=== PATIENT | male | born 1950 | race Caucasian/White ===

== ENCOUNTER 2018-01-02 06:18 | Day surgery (SDC) | payer OTHER ==
[2017-12-23 14:00] VITALS: BP 147/84
[2017-12-23 14:21] LABS: BASOPHILS % (AUTO) 0.7 % (0.0-5.0); EOSINOPHILS % (AUTO) 9.1 % (0.0-8.0); HEMATOCRIT 38.5 % (42-54); LYMPHOCYTES % (AUTO) 19.5 % (21.0-51.0); MEAN CORPUSCULAR HEMOGLOBIN 31.3 pg (27.0-33.0); MEAN CORPUSCULAR HGB CONC 34.2 g/dL (32.0-36.0); MEAN CORPUSCULAR VOLUME 91.6 fL (79-99); MONOCYTES % (AUTO) 8.3 % (3.0-13.0); NEUTROPHILS % (AUTO) 62.4 % (40.0-77.0); PLATELET COUNT (AUTO) 212 K/uL (130-400); RED CELL DISTRIBUTION WIDTH 13.5 % (11.0-15.5); WHITE BLOOD COUNT (AUTO) 7.7 K/uL (4.8-10.8)
[2017-12-23 14:26] LABS: APPEARANCE,URINE Clear (CLEAR); BILIRUBIN,URINE Negative (NEGATIVE); COLOR,URINE Yellow (YELLOW); GLUCOSE, URINE (UA) Negative (NEGATIVE); KETONES,URINE Trace mg/dL (NEGATIVE); LEUKOCYTE ESTERASE ,URINE Trace (NEGATIVE); NITRATE,URINE Negative (NEGATIVE); OCCULT BLOOD,URINE Negative (NEGATIVE); PH,URINE 6.5 (5.0-8.0); PROTEIN,URINE Negative (NEGATIVE)
[2017-12-23 14:30] LABS: POTASSIUM 4.2 mmol/L (3.5-5.1)
[2017-12-23 14:32] LABS: PARTIAL THROMBOPLASTIN TIME 30.1 SEC (26.3-35.5); PROTHROMBIN TIME 10.5 SEC (9.6-11.6)
[2017-12-23 14:49] LABS: BACTERIA,URINE Few /HPF (None Seen); RBC,URINE 0-1 /HPF (0-1)
[2017-12-23 14:50] LABS: MUCUS,URINE Few LPF (None Seen); SQUAMOUS EPITHELIAL CELL,UR Rare /HPF (0-2)
[2018-01-02] VITALS (15 sets, daily range): BP systolic 124–171; BP diastolic 70–93
[~2018-01-02] VITALS: Ht 167.6 cm; Wt 80.6 kg
[~2018-01-02 06:18] MED LIST: AEC81 PO; DICL500C PO; MAGN250T2 PO; ROSU20TA30 PO; SODIUM CHLORIDE 0.9% 500ML 500 ML IV SCH
[2018-01-02] MEDS ORDERED: SODIUM BICARB 50MEQ 50ML VIAL ONE (07:10)
[2018-01-02] MEDS ORDERED: LIDOCAINE HCL-MPF 2% 5ML VIAL ONE (07:10)
[2018-01-02] MEDS ORDERED: NITROGLYCERIN 5 MG/ML 10 ML VIAL IV ONE (07:11)
[2018-01-02] MEDS ORDERED: IOHEXOL-350 50ML VIAL IV ONE (07:11)
[2018-01-02] MEDS ORDERED: HEPARIN SODIUM 1000UNIT/ML 10ML VIAL ONE (07:11)
[2018-01-02] MEDS ORDERED: IOHEXOL 350 MG/ML 100ML INFUS..BTL IV ONE (07:11)
[2018-01-02] MEDS ORDERED: METO-408 PO (07:50)
[2018-01-02] MEDS ORDERED: SODIUM CHLORIDE 0.9% 1000ML 1,000 ML IV SCH (08:18)
[2018-01-02] MEDS ORDERED: ACETAMINOPHEN-CODEINE 300/30MG TAB PO PRN ×2 (08:30)
== END 2018-01-02 13:20 | disposition home or self-care (01) ==
LOC: DAH 06:18
PROVIDERS: ATTEND Internal Medicine Cardiovascular Disease
DX: I25.119 Atherosclerotic heart disease of native coronary artery with unspecified angina pectoris (principal); F10.10 Alcohol abuse, uncomplicated; Z79.899 Other long term (current) drug therapy; Z79.82 Long term (current) use of aspirin; Z86.19 Personal history of other infectious and parasitic diseases
CPT/HCPCS: 36415; 71045; 80048; 81001; 85025; 85610; 85730; 93005; 93458; A4606; C1760; C1894; J1644; J3490 ×3; Q9965; Q9967 ×2

== ENCOUNTER → 2018-03-07 | Outpatient (CLI) | payer OTHER ==
[~2018-03-07] MED LIST changes: +METO-408 PO; -SODIUM CHLORIDE 0.9% 500ML 500 ML IV SCH
== END | disposition home or self-care (01) ==
LOC: RAH 15:34
PROVIDERS: ATTEND Internal Medicine Cardiovascular Disease
DX: I51.7 Cardiomegaly (principal); M47.895 Other spondylosis, thoracolumbar region; Z72.89 Other problems related to lifestyle
CPT/HCPCS: 71046

== ENCOUNTER → 2018-05-29 | Outpatient (CLI) | payer OTHER | END | disposition home or self-care (01) | LOC: RAH 12:51 | PROVIDERS: ATTEND Internal Medicine Cardiovascular Disease | DX: J84.9 Interstitial pulmonary disease, unspecified (principal); T81.32XA Disruption of internal operation (surgical) wound, not elsewhere classified, initial encounter; M47.815 Spondylosis without myelopathy or radiculopathy, thoracolumbar region; I25.10 Atherosclerotic heart disease of native coronary artery without angina pectoris; Y83.8 Other surgical procedures as the cause of abnormal reaction of the patient, or of later complication, without mention of misadventure at the time of the procedure | CPT/HCPCS: 71250 ==

== ENCOUNTER 2019-01-13 08:54 | Emergency (ER) | payer OTHER ==
[~2019-01-13 08:54] MED LIST changes: -ROSU20TA30 PO; +ROSU20TA31 PO
[2019-01-13 09:16] LABS: BASOPHILS % (AUTO) 0.6 % (0.0-5.0); EOSINOPHILS % (AUTO) 7.2 % (0.0-8.0); HEMATOCRIT 43.6 % (42-54); LYMPHOCYTES % (AUTO) 17.8 % (21.0-51.0); MEAN CORPUSCULAR HEMOGLOBIN 31.8 pg (27.0-33.0); MEAN CORPUSCULAR HGB CONC 34.6 g/dL (32.0-36.0); MEAN CORPUSCULAR VOLUME 91.8 fL (79-99); MONOCYTES % (AUTO) 8.2 % (3.0-13.0); NEUTROPHILS % (AUTO) 66.2 % (40.0-77.0); PLATELET COUNT (AUTO) 207 K/uL (130-400); RED BLOOD CELL COUNT(AUTO) 4.75 MIL/uL (4.50-6.20); WHITE BLOOD COUNT (AUTO) 7.6 K/uL (4.8-10.8)
[2019-01-13] MEDS ORDERED: NITROGLYCERIN 1GM/1 INCH PACKET TD ONE (09:22)
[2019-01-13] MEDS ORDERED: ASPIRIN 325 MG TABLET ONE (09:22)
[2019-01-13 09:26] LABS: POTASSIUM 3.7 mmol/L (3.5-5.1)
[2019-01-13 09:28] LABS: APPEARANCE,URINE Clear (CLEAR); BILIRUBIN,URINE Negative (NEGATIVE); COLOR,URINE Yellow (YELLOW); GLUCOSE, URINE (UA) Negative (NEGATIVE); KETONES,URINE Negative (NEGATIVE); LEUKOCYTE ESTERASE ,URINE Trace (NEGATIVE); NITRATE,URINE Negative (NEGATIVE); OCCULT BLOOD,URINE Negative (NEGATIVE); PROTEIN,URINE Negative (NEGATIVE)
[2019-01-13 09:29] LABS: INR 0.95 (0.85-1.15); PARTIAL THROMBOPLASTIN TIME 27.1 SEC (26.3-35.5)
[2019-01-13 09:34] LABS: ALBUMIN 3.7 g/dL (3.5-5.0); BILIRUBIN,TOTAL 0.8 mg/dL (0.2-1.0); TOTAL PROTEIN, SERUM 7.6 g/dL (6.0-8.3)
[2019-01-13 09:39] LABS: BACTERIA,URINE Few /HPF (None Seen); SQUAMOUS EPITHELIAL CELL,UR 0-2 /HPF (0-2)
[2019-01-13 09:40] LABS: RBC,URINE 0-1 /HPF (0-1)
[2019-01-13 09:43] LABS: B-TYPE NATRIURETIC PEPTIDE 37 pg/mL (0-100)
== END 2019-01-13 13:44 | disposition left against medical advice (07) ==
LOC: EDH 08:54
DX: R07.89 Other chest pain (principal); I10 Essential (primary) hypertension; Z87.891 Personal history of nicotine dependence
CPT/HCPCS: 36415; 71045; 80053; 81001; 82550; 83880; 84484; 85025; 85610; 85730; 93005

== ENCOUNTER → 2020-09-15 | Outpatient (CLI) | payer MEDICARE | END | disposition home or self-care (01) | LOC: SHCH 10:33 | PROVIDERS: ATTEND Internal Medicine Cardiovascular Disease | DX: R01.1 Cardiac murmur, unspecified (principal) | CPT/HCPCS: 93306; 93356 ==

== ENCOUNTER 2021-02-26 23:20 | Inpatient (IN) | payer MEDICARE ==
[~2021-02-26] VITALS: Ht 167.6 cm; Wt 71.7 kg
[~2021-02-26 23:20] MED LIST changes: -MAGN250T2 PO; +MAGN250T35 PO
[2021-02-27] VITALS (38 sets, daily range): BP systolic 110–188; BP diastolic 66–119
[2021-02-27] MEDS ORDERED: METO-408 PO (00:58)
[2021-02-27] MEDS ORDERED: TICAGRELOR 90 MG TABLET PO SCH (01:00)
[2021-02-27] MEDS ORDERED: AEC81 PO (01:00)
[2021-02-27] MEDS ORDERED: [UNRECOGNIZED DRUG - CODE] PO (01:00)
[2021-02-27] MEDS ORDERED: PHARMACY COMMUNICATION MISC SCH (01:00)
[2021-02-27] MEDS ORDERED: ATOR40TA71 PO (01:00)
[2021-02-27] MEDS: MORPHINE 2 MG SYG IVP PRN (01:13)
[2021-02-27 03:29] LABS: MEAN CORPUSCULAR HEMOGLOBIN 30.7 pg (27.0-33.0); MEAN CORPUSCULAR HGB CONC 34.4 g/dL (32.0-36.0); MEAN CORPUSCULAR VOLUME 89.2 fL (79-99); RED BLOOD CELL COUNT(AUTO) 4.37 MIL/uL (4.50-6.20); RED CELL DISTRIBUTION WIDTH 13.2 % (11.0-15.5); WHITE BLOOD COUNT (AUTO) 11.2 K/uL (4.8-10.8)
[2021-02-27 03:54] LABS: ALBUMIN 3.3 g/dL (3.5-5.0); BILIRUBIN,TOTAL 0.4 mg/dL (0.2-1.0); CREATININE 0.8 mg/dL (0.5-1.5); MAGNESIUM 1.7 mg/dL (1.80-2.40); POTASSIUM 3.3 mmol/L (3.5-5.1); TOTAL PROTEIN, SERUM 6.9 g/dL (6.0-8.3)
[2021-02-27] MEDS ORDERED: ONDANSETRON 4MG INJ ONE (04:28)
[2021-02-27] MEDS ORDERED: POTASSIUM CHLORIDE 10MEQ/100ML 100 ML IV PRN (04:30)
[2021-02-27] MEDS ORDERED: HYDRALAZINE 20MG/ML VIAL IV PRN (04:30)
[2021-02-27] MEDS ORDERED: KCL 20 MEQ ERTAB PO PRN (04:30)
[2021-02-27] MEDS ORDERED: NITROGLYCERIN 0.4 MG SL TAB SL PRN (04:30)
[2021-02-27] MEDS ORDERED: ONDANSETRON 4MG INJ IVP PRN (04:30)
[2021-02-27] MEDS ORDERED: LACTULOSE 20 GM/30 ML UDCUP PO PRN ×2 (04:30→14:30)
[2021-02-27] MEDS ORDERED: LIDOCAINE HCL-MPF 1% 2ML VIAL IV PRN (04:30)
[2021-02-27] MEDS ORDERED: ACETAMINOPHEN 325 MG TAB PO PRN ×2 (04:30)
[2021-02-27] MEDS: MAGNESIUM 2GM PREMIX 50ML 50 ML IV SCH (04:54)
[2021-02-27] MEDS: 0.9%NACL 1000ML 1,000 ML IV SCH (04:55)
[2021-02-27] MEDS: POTASSIUM CHLORIDE 10MEQ/100ML 10 MEQ/100 ML ML IV SCH ×2 (04:55→06:30)
[2021-02-27] MEDS ORDERED: LORAZEPAM 2 MG/ML 1 ML VIAL IVP PRN (05:00)
[2021-02-27] MEDS ORDERED: PHARMACY COMMUNICATION MISC PRN (05:00)
[2021-02-27 05:06] LABS: THYROID STIMULATING HORMONE 2.87 uIU/mL (0.36-3.74)
[2021-02-27 05:38] LABS: PROTHROMBIN TIME 10.9 SEC (9.6-11.6)
[2021-02-27 05:39] LABS: PARTIAL THROMBOPLASTIN TIME 30.3 SEC (26.3-35.5)
[2021-02-27] MEDS: INSULIN HUMULIN R 100 UNIT/ML 3ML SQ SCH ×4 (07:30→21:00)
[2021-02-27] MEDS ORDERED: THIAMINE HCL 100 MG/ML 2ML VIAL IVP SCH (09:00)
[2021-02-27] MEDS: FAMOTIDINE 20MG VIAL IV SCH ×2 (09:15→19:44)
[2021-02-27] MEDS: THIAMINE HCL 100 MG, FOLIC ACID 1 MG, M.V.I. IV [ADULT] 10 ML in 0.9%NACL 1000ML 1,000 ML IV SCH (09:15)
[2021-02-27] MEDS: METOPROLOL TARTRATE 25 MG TAB PO SCH ×2 (09:16→19:45)
[2021-02-27] MEDS: LISINOPRIL 10 MG TABLET PO SCH (09:16)
[2021-02-27] MEDS: FOLIC ACID 1 MG TABLET PO SCH (09:16)
[2021-02-27] MEDS: TICAGRELOR 90 MG TABLET PO SCH ×2 (09:21→19:45)
[2021-02-27] MEDS ORDERED: ASPIRIN 325MG TAB PO ONE (14:30)
[2021-02-27] MEDS ORDERED: IPRATROPIUM/ALBUTEROL SULFATE 3 ML SOLUTION IH PRN (14:30)
[2021-02-27] MEDS ORDERED: 0.9% NACL 500ML IV.SOLN 500 ML IV SCH (15:00)
[2021-02-27] MEDS: PHARMACY COMMUNICATION MISC SCH ×4 (17:00→23:21)
[2021-02-27] MEDS: ENOXAPARIN SODIUM 80 MG/0.8 ML SQ SCH ×2 (19:45→21:00)
[2021-02-27] MEDS: THIAMINE HCL IV SCH (20:00)
[2021-02-27] MEDS: NACL 0.9% IV SCH (20:00)
[2021-02-27] MEDS ORDERED: ASPIRIN 325MG TAB ONE (20:18)
[2021-02-27] MEDS: ATORVASTATIN 40 MG TABLET PO SCH (21:14)
[2021-02-28] VITALS (18 sets, daily range): BP systolic 131–158; BP diastolic 60–101
[2021-02-28] MEDS: 0.9%NACL 1000ML 1,000 ML IV SCH ×2 (01:00→21:00)
[2021-02-28 03:48] LABS: MEAN CORPUSCULAR HEMOGLOBIN 30.8 pg (27.0-33.0); MEAN CORPUSCULAR VOLUME 90.5 fL (79-99); RED BLOOD CELL COUNT(AUTO) 4.64 MIL/uL (4.50-6.20); RED CELL DISTRIBUTION WIDTH 13.2 % (11.0-15.5); WHITE BLOOD COUNT (AUTO) 13.4 K/uL (4.8-10.8)
[2021-02-28 04:11] LABS: CREATININE 0.8 mg/dL (0.5-1.5); MAGNESIUM 1.7 mg/dL (1.80-2.40); POTASSIUM 3.5 mmol/L (3.5-5.1)
[2021-02-28] MEDS: PHARMACY COMMUNICATION MISC SCH ×3 (04:25→13:00)
[2021-02-28] MEDS: MAGNESIUM 2GM PREMIX 50ML 50 ML IV SCH (04:27)
[2021-02-28] MEDS: POTASSIUM CHLORIDE 10% ELIXIR 20 MEQ/15 ML UDCUP PO PRN ×2 (04:28→07:12)
[2021-02-28] MEDS: THIAMINE HCL 100 MG, FOLIC ACID 1 MG, M.V.I. IV [ADULT] 10 ML in 0.9%NACL 1000ML 1,000 ML IV SCH (04:30)
[2021-02-28] MEDS: INSULIN HUMULIN R 100 UNIT/ML 3ML SQ SCH ×4 (06:20→20:23)
[2021-02-28] MEDS ORDERED: NITROGLYCERIN 50MG/D5W 250ML 1 BOT ONE (07:27)
[2021-02-28] MEDS: ENOXAPARIN SODIUM 80 MG/0.8 ML SQ SCH (08:36)
[2021-02-28] MEDS: TICAGRELOR 90 MG TABLET PO SCH ×2 (08:37→08:52)
[2021-02-28] MEDS: NACL 0.9% IV SCH (08:37)
[2021-02-28] MEDS: FAMOTIDINE 20MG VIAL IV SCH ×2 (08:37→20:22)
[2021-02-28] MEDS: THIAMINE HCL IV SCH (08:37)
[2021-02-28] MEDS: FOLIC ACID 1 MG TABLET PO SCH ×2 (08:38→08:53)
[2021-02-28] MEDS: ASPIRIN 81 MG EC TAB PO SCH ×3 (08:38→09:00)
[2021-02-28] MEDS: METOPROLOL TARTRATE 25 MG TAB PO SCH ×2 (08:53→20:22)
[2021-02-28] MEDS: LISINOPRIL 10 MG TABLET PO SCH (08:53)
[2021-02-28 11:08] LABS: MAGNESIUM 2.3 mg/dL (1.80-2.40)
[2021-02-28] MEDS ORDERED: NITROGLYCERIN 50MG VIAL IV ONE (12:49)
[2021-02-28] MEDS ORDERED: HEPARIN 10,000 UNIT/10ML (1,000 UNIT/ML) VIAL ONE (12:49)
[2021-02-28] MEDS ORDERED: LIDOCAINE HCL 400MG/20ML VIAL ONE (12:49)
[2021-02-28] MEDS ORDERED: IOHEXOL-350 50ML VIAL IV ONE (12:49)
[2021-02-28] MEDS ORDERED: IOHEXOL 350 MG/ML 100ML INFUS..BTL IV ONE (12:49)
[2021-02-28] MEDS ORDERED: BIVALIRUDIN 250 MG/VIAL IV ONE (12:49)
[2021-02-28] MEDS ORDERED: MIDAZOLAM HCL 1 MG/ML 2ML VIAL ONE (13:10)
[2021-02-28] MEDS ORDERED: MORPHINE 4 MG SYG ONE (13:50)
[2021-02-28] MEDS: MORPHINE 2 MG SYG IVP PRN (16:51)
[2021-02-28] MEDS: ATORVASTATIN 40 MG TABLET PO SCH (20:22)
[2021-03-01] VITALS: BP 121/80
[2021-03-01 04:00] VITALS: BP 143/98
[2021-03-01 04:20] LABS: BASOPHILS % (AUTO) 0.3 % (0.0-5.0); EOSINOPHILS % (AUTO) 1.5 % (0.0-8.0); HEMATOCRIT 41.2 % (42-54); LYMPHOCYTES % (AUTO) 7.2 % (21.0-51.0); MEAN CORPUSCULAR HEMOGLOBIN 30.5 pg (27.0-33.0); MEAN CORPUSCULAR HGB CONC 33.3 g/dL (32.0-36.0); MEAN CORPUSCULAR VOLUME 91.8 fL (79-99); MONOCYTES % (AUTO) 8.7 % (3.0-13.0); NEUTROPHILS % (AUTO) 81.7 % (40.0-77.0); PLATELET COUNT (AUTO) 238 K/uL (130-400); RED BLOOD CELL COUNT(AUTO) 4.49 MIL/uL (4.50-6.20); RED CELL DISTRIBUTION WIDTH 13.5 % (11.0-15.5); WHITE BLOOD COUNT (AUTO) 12.8 K/uL (4.8-10.8)
[2021-03-01 04:43] LABS: BILIRUBIN,TOTAL 0.7 mg/dL (0.2-1.0); CREATININE 0.9 mg/dL (0.5-1.5); POTASSIUM 3.9 mmol/L (3.5-5.1); TOTAL PROTEIN, SERUM 6.7 g/dL (6.0-8.3)
[2021-03-01] MEDS: THIAMINE HCL 100 MG, FOLIC ACID 1 MG, M.V.I. IV [ADULT] 10 ML in 0.9%NACL 1000ML 1,000 ML IV SCH (05:37)
[2021-03-01 07:30] VITALS: BP 114/86
[2021-03-01] MEDS: INSULIN HUMULIN R 100 UNIT/ML 3ML SQ SCH ×2 (07:30→11:30)
[2021-03-01] MEDS ORDERED: LISI10TA24 PO (07:37)
[2021-03-01] MEDS ORDERED: METO-391 PO (07:37)
[2021-03-01] MEDS ORDERED: TICA90TA PO (07:37)
[2021-03-01] MEDS: FOLIC ACID 1 MG TABLET PO SCH (09:38)
[2021-03-01] MEDS: FAMOTIDINE 20MG VIAL IV SCH (09:38)
[2021-03-01] MEDS: LISINOPRIL 10 MG TABLET PO SCH (09:40)
[2021-03-01] MEDS: METOPROLOL TARTRATE 25 MG TAB PO SCH (09:40)
[2021-03-01] MEDS: TICAGRELOR 90 MG TABLET PO SCH (09:41)
[2021-03-01] MEDS: ASPIRIN 81 MG EC TAB PO SCH (09:42)
[2021-03-01] MEDS: THIAMINE HCL IV SCH (10:15)
[2021-03-01] MEDS: NACL 0.9% IV SCH (10:15)
[2021-03-01 12:00] VITALS: BP 133/88
== END 2021-03-01 12:50 | disposition home or self-care (01) | DRG 281 ==
LOC: 2DH 02-27 00:15
PROVIDERS: ADMIT Internal Medicine Pulmonary Disease; ATTEND Internal Medicine Pulmonary Disease
PROC: 4A023N7 Measurement of Cardiac Sampling and Pressure, Left Heart, Percutaneous Approach (ICD-10-PCS; principal; 2021-02-28)
PROC: B2111ZZ Fluoroscopy of Multiple Coronary Arteries using Low Osmolar Contrast (ICD-10-PCS; 2021-02-28)
PROC: B2151ZZ Fluoroscopy of Left Heart using Low Osmolar Contrast (ICD-10-PCS; 2021-02-28)
DX: I21.4 Non-ST elevation (NSTEMI) myocardial infarction (principal); F10.139 Alcohol abuse with withdrawal, unspecified; I16.0 Hypertensive urgency; I25.10 Atherosclerotic heart disease of native coronary artery without angina pectoris; F10.10 Alcohol abuse, uncomplicated; E87.6 Hypokalemia; E83.42 Hypomagnesemia; E78.5 Hyperlipidemia, unspecified; F17.200 Nicotine dependence, unspecified, uncomplicated; I10 Essential (primary) hypertension; B19.20 Unspecified viral hepatitis C without hepatic coma; I45.10 Unspecified right bundle-branch block; K59.00 Constipation, unspecified; D72.829 Elevated white blood cell count, unspecified; F19.10 Other psychoactive substance abuse, uncomplicated; Z95.1 Presence of aortocoronary bypass graft; Z79.82 Long term (current) use of aspirin; Z79.899 Other long term (current) drug therapy; Z85.72 Personal history of non-Hodgkin lymphomas; Z91.19 Patient's noncompliance with other medical treatment and regimen; Z82.49 Family history of ischemic heart disease and other diseases of the circulatory system; Z83.438 Family history of other disorder of lipoprotein metabolism and other lipidemia
CPT/HCPCS: 36415; 71045; 80048; 80053; 80061; 82550; 82948; 83735; 83874; 84100; 84132; 84443; 84484; 85025; 85027; 85610; 85730; 93005; 93306; 93356; 93459; 99156; 99157; C1760; C1894; J0360; J0583; J1644; J1650; J2060; J2250; J2270; J2405; J3411; J3475; J3490; J7030; J7050; Q9967

== ENCOUNTER → 2021-03-20 | Outpatient (CLI) | payer MEDICARE ==
[~2021-03-20] MED LIST changes: +LISI10TA24 PO; +MAGN250T2 PO; -MAGN250T35 PO; +METO-391 PO; -METO-408 PO; +TICA90TA PO; +[UNRECOGNIZED DRUG - CODE] PO
== END | disposition home or self-care (01) ==
LOC: RAH 09:47
PROVIDERS: ATTEND Family Medicine
DX: M16.11 Unilateral primary osteoarthritis, right hip (principal)
CPT/HCPCS: 73721

== ENCOUNTER → 2021-06-14 | Outpatient (CLI) | payer MEDICARE ==
[~2021-06-14] MED LIST changes: -MAGN250T2 PO; +MAGN250T35 PO
== END | disposition home or self-care (01) ==
LOC: SHCH 09:02
PROVIDERS: ATTEND Internal Medicine Cardiovascular Disease
DX: I65.23 Occlusion and stenosis of bilateral carotid arteries (principal); I25.10 Atherosclerotic heart disease of native coronary artery without angina pectoris
CPT/HCPCS: 93880

== ENCOUNTER → 2022-07-17 | Outpatient (CLI) | payer MEDICARE | END | disposition home or self-care (01) | LOC: SHCH 15:21 | PROVIDERS: ATTEND Internal Medicine Cardiovascular Disease | DX: I35.0 Nonrheumatic aortic (valve) stenosis (principal); I11.9 Hypertensive heart disease without heart failure; E78.5 Hyperlipidemia, unspecified | CPT/HCPCS: 93306 ==